=== PATIENT | female | born 1980 | race African-American/Black ===

== ENCOUNTER 2017-08-04 09:31 | Emergency (ER) | payer OTHER ==
[~2017-08-04] VITALS: Ht 172.7 cm; Wt 88.5 kg
--- NOTE | ~2017-08-04 | EKG ---
[place] [address] [facility] [place] [address] ELECTROCARDIOGRAM REPORT Name: DEISI NOWAK Room [facility] [id number] Admission: 08/04/17 Attend Phys: Discharge: 08/04/17 Date of : 76 Report #: [id number] THIS REPORT FOR: //name// [facility] ED Test Date: 2017-08-04 Test Time: 10:11:46 Pat Name: DEISI NOWAK Department: Room: Gender: F Appliance Line Assembler: Bennett LEGER : 1980 Requested By: Ligia Lindo Order Number: [id number] MD: Gordon Carolina Measurements Intervals [place] Rate: 78 P: 66 AR: 138 QRS: 28 QRSD: 83 T: 49 QT: 390 QTc: 445 Interpretive Statements Sinus rhythm Baseline wander in lead(s) V6 Compared to ECG 08/11/2008 14:59:08 Atrial abnormality no longer present Electronically Signed On 08-04-2017 11:02:48 CDT by Gordon Carolina [email or web address] <ELECTRONICALLY SIGNED> By: Gordon Carolina MD 08/04/17 1102 1011 1011 Gordon Carolina MD /JACQUELINE
[~2017-08-04 09:31] MED LIST: NAPROSYN500 MG PO; NORCO 5-325 TA1 EACH PO; ONE-A-DAY WOMENS PO; ZANTAC 150MG T150 MG
[2017-08-04 10:04] LABS: ABSOLUTE NEUTROPHILS 3.2 thou/uL (1.4-8.2); BASOPHILS 0.6 % (0.0-2.0); EOSINOPHILS 0.7 % (0.0-3.0); HEMATOCRIT 40.3 % (37.0-47.0); HEMOGLOBIN 13.4 gm/dL (12.0-15.0); LYMPHOCYTES 31.4 % (24.0-44.0); MCH 28.8 pg (26.0-34.0); MCHC 33.1 g/dL (28.0-37.0); MCV 87.1 fL (80.0-100.0); MONOCYTES 11.3 % (1.0-8.0); PLATELET COUNT 265 thou/uL (150-400); RBC 4.63 mil/uL (4.20-5.00); RDW 15.1 % (10.5-14.5); WBC 5.8 thou/uL (4.0-11.0)
[2017-08-04 10:07] LABS: ANION GAP 12 mmol/L (7-16); BUN 17 mg/dL (7-18); CHLORIDE 104 mmol/L (98-107); CO2 28 mmol/L (21-32); CREATININE 1.1 mg/dL (0.6-1.0); GLUCOSE 113 mg/dL (74-106); POTASSIUM 3.8 mmol/L (3.5-5.1); SODIUM 144 mmol/L (136-145)
[2017-08-04 10:13] LABS: MANUAL DIFF NO
[2017-08-04 10:16] LABS: ALBUMIN 3.7 g/dL (3.4-5.0); ALKALINE PHOSPHATASE 57 U/L (46-116); SGOT 29 U/L (15-37); SGPT 31 U/L (30-65); TOTAL BILIRUBIN 0.5 mg/dL (<0.1-1.0); TOTAL PROTEIN 7.2 g/dL (6.4-8.2); TROPONIN-I < 0.04 ng/mL (<0.04-0.07)
[2017-08-04 10:22] LABS: URINE BILIRUBIN NEGATIVE (Negative); URINE BLOOD 3+ (Negative); URINE COLOR YELLOW; URINE GLUCOSE-RANDOM* NEGATIVE (Negative); URINE KETONES 1+ (Negative); URINE NITRITE NEGATIVE (Negative); URINE PROTEIN (DIPSTICK) 2+ (Negative); URINE SPECIFIC GRAVITY >= 1.030 (1.003-1.035)
[2017-08-04 10:30] LABS: AMP/METHAMP Negative (Negative); BARBITURATES Negative (Negative); BENZODIAZEPINES Negative (Negative); COCAINE Negative (Negative); METHADONE Negative (Negative); OPIATES Negative (Negative); PCP POSITIVE (Negative); THC Negative (Negative)
[2017-08-04 10:36] LABS: BACTERIA 1-9 Few /HPF (None Seen); CASTS None Seen /LPF (None Seen); CRYSTALS None Seen /LPF (None Seen); SQUAMOUS None Seen /LPF (0-3); URINE RBC 3-10 Few /HPF (0-2); URINE WBC None Seen /HPF (0-5)
[2017-08-04] MEDS ORDERED: NAPROSYN500 MG PO (10:41)
[2017-08-04 10:42] VITALS: BP 117/73
== END 2017-08-04 10:45 | disposition home or self-care (01) ==
LOC: ER 09:31
PROVIDERS: Physician Assistant
DX: R10.12 Left upper quadrant pain (principal); R07.89 Other chest pain; F16.10 Hallucinogen abuse, uncomplicated; K21.9 Gastro-esophageal reflux disease without esophagitis; F10.99 Alcohol use, unspecified with unspecified alcohol-induced disorder; Z90.710 Acquired absence of both cervix and uterus; Z87.891 Personal history of nicotine dependence

== ENCOUNTER 2018-01-21 19:40 | Emergency (ER) | payer OTHER ==
[~2018-01-21] VITALS: Ht 172.7 cm; Wt 90.7 kg
[2018-01-21 20:23] LABS: URINE BILIRUBIN NEGATIVE (Negative); URINE BLOOD 3+ (Negative); URINE CLARITY CLEAR; URINE COLOR YELLOW; URINE GLUCOSE-RANDOM* NEGATIVE (Negative); URINE KETONES NEGATIVE (Negative); URINE LEUKOCYTES-REFLEX NEGATIVE (Negative); URINE NITRITE-REFLEX NEGATIVE (Negative); URINE PROTEIN (DIPSTICK) TRACE (Negative); URINE SPECIFIC GRAVITY 1.025 (1.005-1.035); URINE UROBILINOGEN 0.2 E.U./dl (0.2-1.0)
[2018-01-21 20:33] LABS: BACTERIA-REFLEX 1-9 Few /HPF (None Seen); CASTS None Seen /LPF (None Seen); SQUAMOUS 0-3 Few /LPF (0-3); URINE WBC-REFLEX 0-5 Rare /HPF (0-5)
[2018-01-21 20:34] LABS: AMORPHOUS URATES Moderate /LPF (None Seen)
[2018-01-21] MEDS ORDERED: UNICOMPLEX M TA1 TA1 PO (20:43)
[2018-01-21] MEDS ORDERED: METFORMIN HCL500 MG PO (20:43)
[2018-01-21] MEDS ORDERED: CALCIUM 600 +1 EAC1 PO (20:44)
[2018-01-21 20:47] LABS: ABSOLUTE NEUTROPHILS 3.6 thou/uL (1.4-8.2); BASOPHILS 0.9 % (0.0-2.0); EOSINOPHILS 1.9 % (0.0-3.0); HEMATOCRIT 35.8 % (37.0-47.0); HEMOGLOBIN 12.1 gm/dL (12.0-15.0); LYMPHOCYTES 33.9 % (24.0-44.0); MCH 28.5 pg (26.0-34.0); MCHC 33.7 g/dL (28.0-37.0); MCV 84.5 fL (80.0-100.0); MONOCYTES 9.2 % (1.0-8.0); PLATELET COUNT 258 thou/uL (150-400); POLYS 54.1 % (36.0-66.0); RBC 4.24 mil/uL (4.20-5.00); WBC 6.6 thou/uL (4.0-11.0)
[2018-01-21 20:54] LABS: CALCIUM 9.5 mg/dL (8.5-10.1); CREATININE 0.9 mg/dL (0.6-1.0); POTASSIUM 3.9 mmol/L (3.5-5.1)
[2018-01-21 21:00] LABS: ALBUMIN 3.2 g/dL (3.4-5.0); TOTAL BILIRUBIN 0.2 mg/dL (<0.1-1.0); TOTAL PROTEIN 6.9 g/dL (6.4-8.2)
[2018-01-21] MEDS ORDERED: FLOMAX0.4 MG PO (22:02)
[2018-01-21] MEDS ORDERED: TORADOL 10 MG T10 MG PO (22:02)
[2018-01-21] MEDS ORDERED: KEFLEX500 M1 PO (22:02)
[2018-01-21 22:35] VITALS: BP 131/70
== END 2018-01-21 22:36 | disposition home or self-care (01) ==
LOC: ER 19:40
PROVIDERS: Emergency Medicine
DX: R31.9 Hematuria, unspecified (principal); R10.30 Lower abdominal pain, unspecified; K21.9 Gastro-esophageal reflux disease without esophagitis; Z90.710 Acquired absence of both cervix and uterus; Z87.891 Personal history of nicotine dependence

== ENCOUNTER 2019-03-17 13:54 | Emergency (ER) | payer OTHER ==
[~2019-03-17] VITALS: Ht 170.2 cm; Wt 88.5 kg
[~2019-03-17 13:54] MED LIST changes: +CALCIUM 600 +1 EAC1 PO; +FLOMAX0.4 MG PO; +KEFLEX500 M1 PO; +METFORMIN HCL500 MG PO; +TORADOL 10 MG T10 MG PO; +UNICOMPLEX M TA1 TA1 PO
[2019-03-17 13:57] VITALS: BP 119/73
[2019-03-17] MEDS ORDERED: MOBIC15 MG PO (14:38)
== END 2019-03-17 14:54 | disposition home or self-care (01) ==
LOC: ER 13:54
DX: S39.012A Strain of muscle, fascia and tendon of lower back, initial encounter (principal); K21.9 Gastro-esophageal reflux disease without esophagitis; Z87.891 Personal history of nicotine dependence; V49.19XA Passenger injured in collision with other motor vehicles in nontraffic accident, initial encounter; Y93.89 Activity, other specified; Y92.89 Other specified places as the place of occurrence of the external cause; Y99.8 Other external cause status

== ENCOUNTER 2019-06-25 16:34 | Emergency (ER) | payer OTHER ==
[~2019-06-25] VITALS: Ht 172.7 cm; Wt 88.5 kg
[~2019-06-25 16:34] MED LIST changes: +MOBIC15 MG PO
[2019-06-25 17:46] LABS: URINE BILIRUBIN NEGATIVE (Negative); URINE BLOOD 3+ (Negative); URINE CLARITY CLEAR; URINE COLOR YELLOW; URINE GLUCOSE-RANDOM* NEGATIVE (Negative); URINE KETONES NEGATIVE (Negative); URINE LEUKOCYTES NEGATIVE (Negative); URINE NITRITE NEGATIVE (Negative); URINE PROTEIN (DIPSTICK) 1+ (Negative); URINE UROBILINOGEN 0.2 E.U./dl (0.2-1.0)
[2019-06-25 17:56] LABS: SQUAMOUS >10 Many /LPF (0-3)
[2019-06-25 17:57] LABS: BACTERIA None Seen /HPF (None Seen); CASTS None Seen /LPF (None Seen); URINE RBC 3-10 Few /HPF (0-2); URINE WBC None Seen /HPF (0-5)
[2019-06-25 17:58] LABS: CRYSTALS None Seen /LPF (None Seen)
[2019-06-25 18:01] LABS: BASOPHILS 0.5 % (0.0-2.0); EOSINOPHILS 2.4 % (0.0-3.0); HEMOGLOBIN 12.3 gm/dL (12.0-15.0); LYMPHOCYTES 37.6 % (24.0-44.0); MCH 28.5 pg (26.0-34.0); MCHC 33.2 g/dL (28.0-37.0); MCV 85.7 fL (80.0-100.0); MONOCYTES 8.6 % (1.0-8.0); PLATELET COUNT 277 thou/uL (150-400); POLYS 50.9 % (36.0-66.0); RBC 4.32 mil/uL (4.20-5.00); RDW 15.5 % (10.5-14.5); WBC 5.8 thou/uL (4.0-11.0)
[2019-06-25 18:07] LABS: CALCIUM 9.1 mg/dL (8.5-10.1); POTASSIUM 3.9 mmol/L (3.5-5.1)
[2019-06-25 18:13] LABS: ALBUMIN 3.2 g/dL (3.4-5.0); TOTAL BILIRUBIN 0.1 mg/dL (<0.1-1.0); TOTAL PROTEIN 7.1 g/dL (6.4-8.2)
[2019-06-25 19:53] VITALS: BP 121/81
--- NOTE | 2019-06-26 08:14 | EKG ---
[place] [address] [place] [address] ELECTROCARDIOGRAM REPORT Name: DEISI NOWAK [facility] [id number] Admission: 06/25/19 Attend Phys: Discharge: 06/25/19 Date of : 76 Report #: [id number] THIS REPORT FOR: //name// [facility] ED Test Date: 2019-06-25 Test Time: 16:42:38 Pat Name: DEISI NOWAK Department: Room: Gender: F Switch Technician: MECCA : 1980 Requested By: Ligia Lindo Order Number: [id number] MD: Flavio Alvarado Measurements Intervals [place] Rate: 84 P: 41 WI: 136 QRS: 24 QRSD: 91 T: 28 QT: 380 QTc: 450 Interpretive Statements Sinus rhythm Normal tracing Compared to ECG 08/04/2017 10:11:46 No significant changes Electronically Signed On 06-26-2019 8:13:56 CDT by Flavio Alvarado [email or web address] <ELECTRONICALLY SIGNED> By: Flavio Alvarado MD, [facility] 06/26/19 0813 [id number] Flavio Alvarado MD, FACC /EPI
== END 2019-06-25 19:54 | disposition home or self-care (01) ==
LOC: ER 16:34
PROVIDERS: Physician Assistant
DX: E86.0 Dehydration (principal); Z87.891 Personal history of nicotine dependence; K21.9 Gastro-esophageal reflux disease without esophagitis; Z90.710 Acquired absence of both cervix and uterus

== ENCOUNTER 2020-01-21 12:14 | Emergency (ER) | payer OTHER ==
[~2020-01-21] VITALS: Ht 172.7 cm; Wt 98.4 kg
[2020-01-21 12:19] VITALS: BP 132/84
[2020-01-21] MEDS ORDERED: NORFLEX100 MG PO (12:39)
[2020-01-21] MEDS ORDERED: NAPROSYN500 MG PO (12:39)
== END 2020-01-21 13:00 | disposition home or self-care (01) ==
LOC: ER 12:14
DX: S93.402A Sprain of unspecified ligament of left ankle, initial encounter (principal); S33.5XXA Sprain of ligaments of lumbar spine, initial encounter; S70.02XA Contusion of left hip, initial encounter; K21.9 Gastro-esophageal reflux disease without esophagitis; E66.01 Morbid (severe) obesity due to excess calories; Z79.899 Other long term (current) drug therapy; Z87.891 Personal history of nicotine dependence; Z90.710 Acquired absence of both cervix and uterus; W01.0XXA Fall on same level from slipping, tripping and stumbling without subsequent striking against object, initial encounter; Y93.89 Activity, other specified; Y92.512 Supermarket, store or market as the place of occurrence of the external cause; Y99.8 Other external cause status

== ENCOUNTER 2020-05-16 10:13 | Emergency (ER) | payer OTHER ==
[~2020-05-16] VITALS: Ht 175.3 cm; Wt 98.4 kg
[~2020-05-16 10:13] MED LIST changes: +NORFLEX100 MG PO
[2020-05-16] MEDS ORDERED: IBUPROFEN 600600 M1 PO (12:17)
[2020-05-16] MEDS ORDERED: NORFLEX100 MG PO (12:17)
[2020-05-16] MEDS ORDERED: MEDROLDOSEPACK PO (12:17)
[2020-05-16 12:50] VITALS: BP 124/74
== END 2020-05-16 12:50 | disposition home or self-care (01) ==
LOC: ER 10:13
DX: S39.012A Strain of muscle, fascia and tendon of lower back, initial encounter (principal); R10.32 Left lower quadrant pain; K21.9 Gastro-esophageal reflux disease without esophagitis; Z90.710 Acquired absence of both cervix and uterus; Z98.890 Other specified postprocedural states; Z79.899 Other long term (current) drug therapy; Z87.891 Personal history of nicotine dependence; W18.39XA Other fall on same level, initial encounter; Y93.01 Activity, walking, marching and hiking; Y92.89 Other specified places as the place of occurrence of the external cause; Y99.8 Other external cause status

== ENCOUNTER 2020-12-12 11:21 | Emergency (ER) | payer OTHER ==
[~2020-12-12] VITALS: Ht 172.7 cm; Wt 97.5 kg
[~2020-12-12 11:21] MED LIST changes: +IBUPROFEN 600600 M1 PO; +MEDROLDOSEPACK PO
[2020-12-12 11:24] VITALS: BP 140/79
[2020-12-12 11:39] LABS: URINE BILIRUBIN NEGATIVE (Negative); URINE BLOOD 2+ (Negative); URINE CLARITY CLEAR; URINE COLOR YELLOW; URINE GLUCOSE-RANDOM* NEGATIVE (Negative); URINE KETONES NEGATIVE (Negative); URINE LEUKOCYTES-REFLEX NEGATIVE (Negative); URINE NITRITE-REFLEX NEGATIVE (Negative); URINE PROTEIN (DIPSTICK) NEGATIVE (Negative); URINE UROBILINOGEN 0.2 E.U./dl (0.2-1.0)
[2020-12-12] MEDS ORDERED: IBU400 MG PO (11:53)
[2020-12-12] MEDS ORDERED: FLAGYL500 M1 PO (11:53)
[2020-12-12 12:51] LABS: SQUAMOUS >10 Many /LPF (0-3)
[2020-12-12 12:52] LABS: BACTERIA-REFLEX 1-9 Few /HPF (None Seen); CASTS None Seen /LPF (None Seen); CRYSTALS None Seen /LPF (None Seen); URINE RBC 3-10 Few /HPF (0-2); URINE WBC-REFLEX 0-5 Rare /HPF (0-5)
== END 2020-12-12 12:16 | disposition home or self-care (01) ==
LOC: ER 11:21
PROVIDERS: Emergency Medicine
DX: N76.0 Acute vaginitis (principal); B96.89 Other specified bacterial agents as the cause of diseases classified elsewhere; K21.9 Gastro-esophageal reflux disease without esophagitis; E11.9 Type 2 diabetes mellitus without complications; Z90.711 Acquired absence of uterus with remaining cervical stump; Z79.899 Other long term (current) drug therapy; Z87.891 Personal history of nicotine dependence

== ENCOUNTER 2021-03-06 18:02 | Emergency (ER) | payer OTHER ==
[~2021-03-06] VITALS: Ht 165.1 cm; Wt 97.5 kg
[~2021-03-06 18:02] MED LIST changes: +FLAGYL500 M1 PO; +IBU400 MG PO
[2021-03-06 18:17] LABS: URINE BILIRUBIN NEGATIVE (Negative); URINE BLOOD 3+ (Negative); URINE CLARITY CLEAR; URINE COLOR YELLOW; URINE GLUCOSE-RANDOM* NEGATIVE (Negative); URINE KETONES NEGATIVE (Negative); URINE LEUKOCYTES-REFLEX NEGATIVE (Negative); URINE NITRITE-REFLEX NEGATIVE (Negative); URINE PROTEIN (DIPSTICK) NEGATIVE (Negative); URINE SPECIFIC GRAVITY 1.025 (1.005-1.035); URINE UROBILINOGEN 0.2 E.U./dl (0.2-1.0)
[2021-03-06 18:30] LABS: CASTS None Seen /LPF (None Seen); SQUAMOUS None Seen /LPF (0-3)
[2021-03-06 18:31] LABS: BACTERIA-REFLEX 1-9 Few /HPF (None Seen); URINE RBC 3-10 Few /HPF (0-2); URINE WBC-REFLEX None Seen /HPF (0-5)
[2021-03-06 18:32] LABS: CRYSTALS None Seen /LPF (None Seen); YEAST-REFLEX Present (None Seen)
[2021-03-06] MEDS ORDERED: DIFLUCAN200 MG PO (19:24)
== END 2021-03-06 19:42 | disposition home or self-care (01) ==
LOC: ER 18:02
PROVIDERS: Nurse Practitioner
DX: B37.3 Candidiasis of vulva and vagina (principal); E66.9 Obesity, unspecified; K21.9 Gastro-esophageal reflux disease without esophagitis; E11.9 Type 2 diabetes mellitus without complications; Z87.891 Personal history of nicotine dependence; Z79.899 Other long term (current) drug therapy; Z90.710 Acquired absence of both cervix and uterus; Z98.890 Other specified postprocedural states

== ENCOUNTER 2021-05-22 12:43 | Emergency (ER) | payer OTHER ==
[~2021-05-22] VITALS: Ht 172.7 cm; Wt 107.5 kg
[~2021-05-22 12:43] MED LIST changes: +DIFLUCAN200 MG PO
[2021-05-22] MEDS ORDERED: METFORMIN HCL500 MG PO (13:26)
[2021-05-22 13:50] LABS: URINE BILIRUBIN NEGATIVE (Negative); URINE BLOOD 3+ (Negative); URINE CLARITY CLEAR; URINE COLOR YELLOW; URINE GLUCOSE-RANDOM* NEGATIVE (Negative); URINE KETONES TRACE (Negative); URINE LEUKOCYTES-REFLEX NEGATIVE (Negative); URINE NITRITE-REFLEX NEGATIVE (Negative); URINE PROTEIN (DIPSTICK) NEGATIVE (Negative); URINE SPECIFIC GRAVITY 1.025 (1.005-1.035); URINE UROBILINOGEN 0.2 E.U./dl (0.2-1.0)
[2021-05-22 14:36] LABS: BACTERIA-REFLEX 1-9 Few /HPF (None Seen); CASTS None Seen /LPF (None Seen); CRYSTALS None Seen /LPF (None Seen); SQUAMOUS None Seen /LPF (0-3); URINE RBC 3-10 Few /HPF (NONE SEEN); URINE WBC-REFLEX None Seen /HPF (0-5)
[2021-05-22] MEDS ORDERED: DIFLUCAN150 MG PO (15:24)
[2021-05-22] MEDS ORDERED: CEPHALEXIN500 MG PO (15:24)
[2021-05-22] MEDS ORDERED: MOBIC7.5 MG PO (15:24)
[2021-05-22 15:33] VITALS: BP 116/76
== END 2021-05-22 15:33 | disposition home or self-care (01) ==
LOC: ER 12:43
PROVIDERS: Nurse Practitioner
DX: L29.2 Pruritus vulvae (principal); M25.561 Pain in right knee; M79.89 Other specified soft tissue disorders; K21.9 Gastro-esophageal reflux disease without esophagitis; E11.9 Type 2 diabetes mellitus without complications; Z90.711 Acquired absence of uterus with remaining cervical stump; Z98.890 Other specified postprocedural states; Z79.899 Other long term (current) drug therapy; Z87.891 Personal history of nicotine dependence

== ENCOUNTER 2021-05-30 11:55 | Emergency (ER) | payer OTHER ==
[~2021-05-30] VITALS: Ht 172.7 cm; Wt 107.5 kg
[~2021-05-30 11:55] MED LIST changes: +CEPHALEXIN500 MG PO; +DIFLUCAN150 MG PO; +MOBIC7.5 MG PO
[2021-05-30 12:28] LABS: URINE BILIRUBIN NEGATIVE (Negative); URINE BLOOD 1+ (Negative); URINE CLARITY CLEAR; URINE COLOR YELLOW; URINE GLUCOSE-RANDOM* NEGATIVE (Negative); URINE KETONES NEGATIVE (Negative); URINE LEUKOCYTES-REFLEX NEGATIVE (Negative); URINE NITRITE-REFLEX NEGATIVE (Negative); URINE PROTEIN (DIPSTICK) NEGATIVE (Negative); URINE UROBILINOGEN 0.2 E.U./dl (0.2-1.0)
[2021-05-30 12:41] LABS: BACTERIA-REFLEX 1-9 Few /HPF (None Seen); CASTS None Seen /LPF (None Seen); CRYSTALS None Seen /LPF (None Seen); SQUAMOUS 4-10 Moderate /LPF (0-3); URINE RBC 3-10 Few /HPF (NONE SEEN); URINE WBC-REFLEX None Seen /HPF (0-5)
[2021-05-30 13:28] LABS: ABSOLUTE NEUTROPHILS 2.9 thou/uL (1.4-8.2); BASOPHILS 1.1 % (0.0-2.0); EOSINOPHILS 1.9 % (0.0-3.0); HEMATOCRIT 39.1 % (37.0-47.0); HEMOGLOBIN 13.3 gm/dL (12.0-15.0); LYMPHOCYTES 37.2 % (24.0-44.0); MCH 29.3 pg (26.0-34.0); MONOCYTES 7.8 % (1.0-8.0); PLATELET COUNT 265 thou/uL (150-400); RBC 4.54 mil/uL (4.20-5.00); RDW 14.6 % (10.5-14.5); WBC 5.6 thou/uL (4.0-11.0)
[2021-05-30 13:31] LABS: CALCIUM 8.9 mg/dL (8.5-10.1); POTASSIUM 4.3 mmol/L (3.5-5.1)
[2021-05-30 13:37] LABS: ALBUMIN 3.2 g/dL (3.4-5.0); TOTAL BILIRUBIN 0.2 mg/dL (0.2-1.0); TOTAL PROTEIN 6.7 g/dL (6.4-8.2)
[2021-05-30] MEDS ORDERED: FISH OIL 1,0001 EAC9 PO (14:04)
[2021-05-30] MEDS ORDERED: METHOCARBAMOL500 M2 PO (14:49)
[2021-05-30 14:54] VITALS: BP 117/65
== END 2021-05-30 14:55 | disposition home or self-care (01) ==
LOC: ER 11:55
PROVIDERS: Emergency Medicine; Nurse Practitioner Family
DX: R10.9 Unspecified abdominal pain (principal); K21.9 Gastro-esophageal reflux disease without esophagitis; Z90.710 Acquired absence of both cervix and uterus; E11.9 Type 2 diabetes mellitus without complications; Z79.899 Other long term (current) drug therapy; Z87.891 Personal history of nicotine dependence

== ENCOUNTER 2021-07-11 16:32 | Emergency (ER) | payer OTHER ==
[~2021-07-11] VITALS: Ht 172.7 cm; Wt 125.7 kg
[~2021-07-11 16:32] MED LIST changes: +FISH OIL 1,0001 EAC9 PO; +METHOCARBAMOL500 M2 PO
[2021-07-11 16:33] VITALS: BP 122/78
[2021-07-11 17:47] LABS: URINE BILIRUBIN NEGATIVE (Negative); URINE BLOOD 1+ (Negative); URINE CLARITY CLEAR; URINE COLOR YELLOW; URINE GLUCOSE-RANDOM* NEGATIVE (Negative); URINE KETONES NEGATIVE (Negative); URINE LEUKOCYTES-REFLEX NEGATIVE (Negative); URINE NITRITE-REFLEX NEGATIVE (Negative); URINE PROTEIN (DIPSTICK) NEGATIVE (Negative); URINE UROBILINOGEN 0.2 E.U./dl (0.2-1.0)
[2021-07-11 17:52] LABS: BACTERIA-REFLEX None Seen /HPF (None Seen); CRYSTALS None Seen /LPF (None Seen); SQUAMOUS >10 Many /LPF (0-3); URINE RBC 1-2 Rare /HPF (NONE SEEN); URINE WBC-REFLEX None Seen /HPF (0-5)
[2021-07-11] MEDS ORDERED: MOBIC15 MG PO (17:52)
== END 2021-07-11 17:54 | disposition home or self-care (01) ==
LOC: ER 16:32
PROVIDERS: Emergency Medicine
DX: S93.401A Sprain of unspecified ligament of right ankle, initial encounter (principal); K21.9 Gastro-esophageal reflux disease without esophagitis; E11.9 Type 2 diabetes mellitus without complications; Z90.710 Acquired absence of both cervix and uterus; Z79.899 Other long term (current) drug therapy; Z87.891 Personal history of nicotine dependence; V89.2XXA Person injured in unspecified motor-vehicle accident, traffic, initial encounter; Y93.89 Activity, other specified; Y92.89 Other specified places as the place of occurrence of the external cause; Y99.8 Other external cause status